=== PATIENT | male | born 1980 | race African-American/Black ===

== ENCOUNTER 2021-06-01 11:33 | Emergency (ER) | payer SELFPAY ==
[2021-06-01] MEDS ORDERED: Nitroglycerin 2% Ointment 1 INCH/1 GM Packet ONE (12:05)
[2021-06-01] MEDS ORDERED: Aspirin Chewable 81 MG TAB ONE (12:05)
[2021-06-01] MEDS ORDERED: Metoprolol Tartrate 5 MG/5 ML VIAL ONE (12:05)
[2021-06-01] MEDS ORDERED: Enoxaparin Sodium 100 MG/ML SYRINGE ONE (14:26)
[2021-06-01 19:00] LABS: Hemoglobin 14.5 g/dL (14.0-18.0); Mean Corpuscular Hemoglobin 31.6 pg (27.0-31.0); Mean Corpuscular Volume 93.1 fL (78.0-98.0); Red Blood Cell (RBC) Count 4.59 mill/uL (4.70-6.10); White Blood Cell (WBC) Count 6.8 thou/uL (4.8-10.8)
[2021-06-01 19:01] LABS: #Basophils 0.1 thou/uL (0.0-0.2); #Eosinphils 0.1 thou/uL (0.0-0.7); #Lymphocytes 2.2 thou/uL (1.20-3.40); #Monocytes 0.6 thou/uL (0.11-0.59); #Neutrophils 3.9 thou/uL (1.40-6.50); %Eosinophils 1.1 % (0.0-10.0); %Lymphocytes 32.1 % (21.0-51.0); %Monocytes 9.1 % (0.0-10.0); %Neutrophils 56.7 % (42.0-75.0); Mean Platelet Volume 7.5 fL (7.4-10.4); Platelet Count 243 thou/uL (130-400); RBC Distribution Width 12.6 % (11.5-14.5)
[2021-06-01 19:02] LABS: INR-International Normal Ratio 0.9; PTT 25.9 sec (22.9-36.1); Prothrombin Time 12.3 sec (12.0-14.7)
[2021-06-01 19:45] LABS: Albumin 4.3 g/dL (3.5-5.0); Anion Gap 14 mmol/L (10-20); BUN (Urea Nitrogen) 16 mg/dL (8.9-20.6); Bilirubin, Total 0.7 mg/dL (0.2-1.2); Calc. Creatinine Clearance 0 mL/min (70-130); Calcium 9.7 mg/dL (7.8-10.44); Carbon Dioxide 23 mmol/L (22-29); Chloride 107 mmol/L (98-107); Glucose 96 mg/dL (70-105); Protein, Total 7.3 g/dL (6.0-8.3); Sodium 140 mmol/L (136-145)
[2021-06-01 19:46] LABS: ALT (SGPT) 8 U/L (8-55); AST (SGOT) 17 U/L (5-34); Alkaline Phosphatase 64 U/L (40-110); Lipase 35 U/L (8-78)
[2021-06-01 19:52] LABS: CKMB 2.1 ng/mL (0-6.6); Troponin I 0.014 ng/mL (< 0.028)
[2021-06-01 21:02] LABS: Acetaminophen Less than 6.0 mcg/mL (10.0-30.0); Alcohol Less than 10 mg/dL (Less than 10); Salicylate Less than 8.0 mg/dL (15.0-30.0)
== END 2021-06-01 15:00 | disposition left against medical advice (07) ==
LOC: ERS 11:33
DX: I21.4 Non-ST elevation (NSTEMI) myocardial infarction (principal); I10 Essential (primary) hypertension
CPT/HCPCS: 71045; 80053; 80307; 82553; 83690; 83880; 84484; 85025; 85610; 85730; 93005; J1650